=== PATIENT | male | born 1985 | race Caucasian/White ===

== ENCOUNTER 2018-11-23 13:47 | Day surgery (SDC) | payer BC ==
[2018-11-23] VITALS (20 sets, daily range): BP systolic 108–131; BP diastolic 67–89; PULSE 62–86; RESP 11–18; Ht 180.3 cm; Wt 80.9 kg
[~2018-11-23] VITALS: Ht 180.3 cm; Wt 80.9 kg
--- NOTE | 2018-11-23 16:34 | HPN ---
Date/Time of Note Date/Time of Note DATE: 11/23/18 TIME: 16:33 Interval H&P Admission Note Pt. seen H&P reviewed: No system changes TEMI AREVALO MD Nov 23, 2018 16:33
--- NOTE | 2018-11-23 16:45 | PREAC ---
Date/Time of Note Date/Time of Note DATE: 11/23/18 TIME: 16:45 Anesthesia Eval and Record Evaluation Time Pre-Procedure Interview DATE: 11/23/18 TIME: 16:45 Age 33 Sex male NPO: 8 hrs Preoperative diagnosis Deviated nasal septum, inferior turbinate hypertrophy Planned procedure Septoplasty, submucous resection of inferior turbinates, repair of nasal vestibular stenosis, lysis of adhesions Past Medical History Past Medical History: Includes Cardio: Dyslipidemia Pulm: Smoking Hx Surgery & Anesthesia Issues No known issue Meds Anticoagulation: No Beta David within 24 hr: No Reason Beta David not given: Pt. not on B-David No Active Prescriptions or Reported Meds Meds reviewed: Yes Allergies Coded Allergies: No Known Allergy (Unverified , 11/23/18) Allergies Reviewed: Yes Labs/Studies Labs Reviewed: Reviewed by anesthesiologist test: N/A Pre-procedure Exam Last vitals Vital Signs Date Temp Pulse Resp B/P (MAP) Pulse Ox O2 O2 Flow FiO2 Time Delivery Rate 11/23/18 98.1 75 16 108/67 97 Room Air 14:05 (81) Airway: Adequate mouth opening Mallampati: Mallampati I Teeth: Normal Lung: Normal Heart: Normal ASA Physical Status ASA physical status: 2 Emergency: None Planned Anesthetic General/MAC: ETT Planned Pain Management Parenteral pain med Pre-operative Attestations Prior to commencing anesthesia and surgery, the patient was re-evaluated, there was verification of: *The patient's identity *The results of appropriate recent lab work and preoperative vital signs *The above evaluation not changing prior to induction *Anesthetic plan, risk benefits, alternative and complications discussed with patient/family; questions answered; patient/family understands, accepts and wishes to proceed. FENG ODONNELL MD Nov 23, 2018 16:45
[2018-11-23] MEDS ORDERED: LIDOCAINE 1%/EPI 30 ML INJ ONE (16:48)
[2018-11-23] MEDS ORDERED: COCAINE 4% 4 ML TOP ONE (16:49)
[2018-11-23] MEDS ORDERED: OXYCODONE/ACETAMINOPHEN (5/325) TAB PO PRN ×2 (17:00)
[2018-11-23] MEDS ORDERED: FENTAnyl 50 MCG/ML VIAL IV PRN ×3 (17:00)
[2018-11-23] MEDS ORDERED: MEPERIDINE 25 MG INJ IV PRN (17:00)
[2018-11-23] MEDS ORDERED: DIPHENHYDRAMINE 50 MG INJ IV PRN (17:00)
[2018-11-23] MEDS ORDERED: MIDAZOLAM 1 MG/ML 2 ML INJ IV PRN (17:00)
[2018-11-23] MEDS ORDERED: ONDANSETRON 4 MG INJ IV PRN (17:00)
[2018-11-23] MEDS ORDERED: MEPERIDINE 100 MG INJ ONE (17:06)
[2018-11-23] MEDS ORDERED: LIDOCAINE 2% (SDV) 5 ML INJ ONE (17:06)
[2018-11-23] MEDS ORDERED: PROPOFOL 20 ML ONE (17:06)
[2018-11-23] MEDS ORDERED: GLYCOPYRROLATE 0.4 MG INJ ONE ×2 (17:06→17:31)
[2018-11-23] MEDS ORDERED: ROCURONIUM 50 MG INJ ONE (17:06)
[2018-11-23] MEDS ORDERED: SUCCINYLCHOLINE CHLORIDE 100 MG/5 ML SYG IV ONE (17:06)
[2018-11-23] MEDS ORDERED: NEOSTIGMINE 3 MG/3 ML SYRINGE ONE ×2 (17:06→17:31)
[2018-11-23] MEDS ORDERED: CEFAZOLIN 1 GM INJ ONE (17:30)
[2018-11-23] MEDS ORDERED: NEOMYC/POLYMYX/BACIT 30 GM OINT ONE (17:49)
[2018-11-23] MEDS ORDERED: BACITRACIN/POLYMYXIN 28.35 GM OINT TOP ONE (17:49)
[2018-11-23] MEDS ORDERED: HYDROCODONE/APAP (5/325) TAB PO PRN (18:00)
--- NOTE | 2018-11-23 18:01 | OPR ---
Date/Time of Note Date/Time of Note DATE: 11/23/18 TIME: 17:54 Operative Report Procedure Date: Nov 23, 2018 Preoperative Diagnosis Acquired nasal deformity, nasal congestion, valve collapse and stenosis. Postoperative Diagnosis Same Operation/Procedure Performed Revision septoplasty, submucous resection of turbinates, lysis of adhesions, right metal control coordinator graft repair of vestibular stenosis. Surgeon see signature line Food Processing Plant Manager None Anesthesia Type: general Estimated Blood Loss: 0 - 10 ml's Transfusion none Specimen None Grafts/Implants none Complications none Pt Condition Post Procedure: stable Disposition: PACU Indications Severe nasal congestion. Procedure Description Description of procedure: The patient was identified in the holding area. We had a discussion to confirm understanding of all indications risks benefits alternatives and postoperative care associated with the operation. Female register in chancery was present. We reviewed the no guarantee policy. The patient signed informed consent was taken to the operating room. The patient was laid supine on the operating room table and general anesthesia was achieved without difficulty. The face was draped in sterile fashion and the nose was packed with 4% cocaine pledgets. The nasal septum was infiltrated with 5 cc of 1% lidocaine with epinephrine in the submucoperiosteal plane bilaterally. Anterior rhinoscopy revealed severe DNS right and severe inferior meatus scar bands. These were lysed with a freer elevator. A hemitransfixion incision was made and submucoperichondreal flaps were raised. This was difficult caudally but easier posteriorly. The bony cartilaginous junction of the septum was identified and entered. A deviated segments of bone and cartilage were isolated. A double-action scissor was used to transect the bony deviated segment of the skull base after which a Rafita forcep was used to resect deviated segment of bone and cartilage. Care was taken to avoid excess cartilaginous resection. The harvested cartilage was then inserted superiorly into the right flap which was first prepared by the septum from the upper lateral cartilage. The graft was placed and secured with 40 fast mattress suture. The flaps were returned to normal position and anterior rhinoscopy reveals midline septum. At this point the right inferior turbinate was medialized with a Flat [place] elevator. The anterior face was cut and submucosal elevation was performed. Biting forceps were used to removed deep tissue sparing the mucosa. The turbinate was crushed laterally into the lateral nasal wall with a Miguel elevator. The contralateral turbinate was addressed in similar fashion to complete the bilateral submucous resection and lateral fracturing of the inferior turbinates. Septal flaps were secured with a 40 fast-absorbing gut whip stitch. A Merocel pack was placed on each side. The patient was awakened, extubated and taken to the PACU in stable condition. Complications: None. TEMI AREVALO MD Nov 23, 2018 18:01
[2018-11-23] MEDS: METOCLOPRAMIDE 10 MG INJ IV PRN (19:14)
--- NOTE | 2018-11-23 19:47 | PAC ---
Date/Time of Note Date/Time of Note DATE: 11/23/18 TIME: 19:47 Post-Anesthesia Notes Post-Anesthesia Note Last documented vital signs Vital Signs Date Temp Pulse Resp B/P (MAP) Pulse Ox O2 O2 Flow FiO2 Time Delivery Rate 11/23/18 98.1 75 16 108/67 97 Room Air 14:05 (81) Activity: WNL Respiratory function: WNL Cardiovascular function: WNL Mental status: Baseline Pain reasonably controlled: Yes Hydration appropriate: Yes Nausea/Vomiting absent: Yes FENG ODONNELL MD Nov 23, 2018 19:47
== END 2018-11-23 20:03 | disposition home or self-care (01) ==
LOC: SDS 13:47
PROVIDERS: ATTEND Otolaryngology
DX: M95.0 Acquired deformity of nose (principal); R09.81 Nasal congestion
CPT/HCPCS: 30140; 30520; J0690; J2175; J2405; J2710; J2765; J3010